=== PATIENT | female | born 1965 | race Caucasian/White ===

== ENCOUNTER 2016-09-16 04:09 | Emergency (ER) | payer SELFPAY ==
[~2016-09-16] VITALS: Ht 157.5 cm; Wt 68.0 kg
[~2016-09-16 04:09] MED LIST: LORA-434 PO
[2016-09-16 04:31] LABS: BASO # 0.1 x10^3/uL (0.0-0.2); BASO % 1 % (0-3); EOS % 3 % (0-3); HEMATOCRIT 38.6 % (36.0-47.0); HEMOGLOBIN 12.5 g/dL (12.0-15.5); LYMPH # 1.7 x10^3/uL (1.0-4.8); LYMPH % 18 % (24-48); MEAN CORPUSCULAR HEMOGLOBIN 28 pg (25-35); MEAN CORPUSCULAR HGB CONC 32 g/dL (31-37); MEAN CORPUSCULAR VOLUME 86 fL (79-100); MONO % 10 % (0-9); NEUT % 67 % (31-73); PLATELET COUNT 268 x10^3/uL (140-400); RED BLOOD COUNT 4.51 x10^6/uL (3.50-5.40); RED CELL DISTRIBUTION WIDTH 16.7 % (11.5-14.5); WHITE BLOOD COUNT 9.2 x10^3/uL (4.0-11.0)
--- NOTE | 2016-09-16 04:31 | PHYS DOC ---
Past Medical History Past Medical History: Anxiety, Asthma Additional Past Medical Histor: uterine fibroid Past Surgical History: No Surgical History Alcohol Use: Occasionally Drug Use: None Adult General Chief Complaint Chief Complaint: VAGINAL BLEEDING HPI HPI Patient is a 50 year old female who presents with vaginal bleeding. Patient reports past days she has been having heavy vaginal bleeding. She is unsure if she is on her menstrual cycle actually is irregular. Last period was approximately 3 weeks ago. She also describes some abdominal cramping. She had been prescribed oral contraceptives in the past to help with heavy vaginal bleeding, but she is taking these regularly. She has not taken anything for pain. No other acute complaints. Review of Systems Review of Systems Constitutional: Denies fever or chills Eyes: Denies change in visual acuity or eye pain HENT: Denies nasal congestion or sore throat Respiratory: Denies cough or shortness of breath Cardiovascular: Denies chest pain GI: Lower abdominal cramping. Denies nausea, vomiting, bloody stools or diarrhea : Heavy vaginal bleeding. Denies dysuria or hematuria Musculoskeletal: Denies back pain or joint pain Integument: Denies rash or skin lesions Neurologic: Denies headache, focal weakness or sensory changes Current Medications Current Medications Current Medications Medications (Trade) Dose Ordered Sig/Mateusz Start Time Stop Time Status Last Admin Dose Admin Lorazepam (Ativan) 1 mg 1X ONCE 09/16/16 04:45 09/16/16 04:55 DC 09/16/16 04:46 1 MG Naproxen (Naprosyn) 500 mg 1X ONCE 09/16/16 05:15 09/16/16 05:28 DC 09/16/16 05:20 500 MG Sodium Chloride (Iv Sodium Chloride 0.9% 1000ml Bag) 1,000 ml @ 1,000 mls/hr 1X ONCE 09/16/16 05:00 09/16/16 05:58 DC 09/16/16 05:22 1,000 MLS/HR Tramadol HCl (Ultram) 50 mg 1X ONCE 09/16/16 04:45 09/16/16 04:55 DC 09/16/16 04:46 50 MG Allergies Allergies Allergies Coded Allergies Type Severity Reaction Last Updated Verified No Known Drug Allergies 02/20/16 No Physical Exam Physical Exam Constitutional: Well developed, well nourished, no acute distress, non-toxic appearance HENT: Normocephalic, atraumatic, bilateral external ears normal Eyes: EOMI, conjunctiva normal, no discharge Neck: Normal range of motion, no stridor Cardiovascular: Heart rate normal, regular rhythm, no murmur Lungs & Thorax: Bilateral breath sounds clear to auscultation Abdomen: Bowel sounds normal, soft, non-distended, mild lower TTP without guarding or rebound Pelvic: Small amount dark red blood in vault. No CMT or adnexal tenderness Skin: Warm, dry, no erythema, no rash Extremities: No obvious deformity, no edema Neurologic: Alert and oriented X 3, no gross deficits noted Current Patient Data Vital Signs Vital Signs Date Time Temp Pulse Resp B/P Pulse Ox O2 Delivery O2 Flow Rate FiO2 09/16/16 05:47 86 18 139/102 97 Room Air 09/16/16 04:28 98.6 98.6 Lab Values Laboratory Tests Test 09/16/16 04:20 White Blood Count 9.2x10^3/uL (4.0-11.0) Red Blood Count 4.51x10^6/uL (3.50-5.40) Hemoglobin 12.5g/dL (12.0-15.5) Hematocrit 38.6% (36.0-47.0) Mean Corpuscular Volume 86fL (79-100) Mean Corpuscular Hemoglobin 28pg (25-35) Mean Corpuscular Hemoglobin Concent 32g/dL (31-37) Red Cell Distribution Width 16.7% (11.5-14.5) H Platelet Count 268x10^3/uL (140-400) Neutrophils (%) (Auto) 67% (31-73) Lymphocytes (%) (Auto) 18% (24-48) L Monocytes (%) (Auto) 10% (0-9) H Eosinophils (%) (Auto) 3% (0-3) Basophils (%) (Auto) 1% (0-3) Neutrophils # (Auto) 6.2x10^3uL (1.8-7.7) Lymphocytes # (Auto) 1.7x10^3/uL (1.0-4.8) Monocytes # (Auto) 1.0x10^3/uL (0.0-1.1) Eosinophils # (Auto) 0.3x10^3/uL (0.0-0.7) Basophils # (Auto) 0.1x10^3/uL (0.0-0.2) Serum Test, Qualitative Negative (NEG) Laboratory Tests 09/16/16 04:20 Microbiology 09/16/16 Wet Prep - Final, Complete Microbiology 09/16/16 Wet Prep - Final, Complete EKG EKG [] Radiology/Procedures Radiology/Procedures [] Course & Med Decision Making Course & Med Decision Making Pertinent Labs and Imaging studies reviewed. (See chart for details) Patient is 50-year-old female who presents with vaginal bleeding. Apparently menorrhagia. Pelvic exam performed. CBC sent to evaluate for anemia. Oral pain meds for patient comfort. Hemoglobin 12.5. Discussed results with patient. Patient discharged home with instructions to follow-up with [facility] [employer] and return precautions. Dragon Disclaimer Dragon Disclaimer This electronic medical record was generated, in whole or in part, using a voice recognition dictation system. Departure Departure Impression: Primary Impression: Menorrhagia Disposition: 01 HOME, SELF-CARE Condition: STABLE Referrals: JANES BARAKAT MD (PCP) Patient Instructions: Menorrhagia Additional Instructions: Thank you for allowing us to provide care today in the Emergency Department. Continue to take the oral contraceptive pills that you have already been prescribed. Schedule a follow up appointment with your ObGyn. Return promptly to the Emergency Department if you develop any new or concerning symptoms. CONNOR ANDREW MD Sep 16, 2016 04:31
[2016-09-16] MEDS ORDERED: TRAMADOL 50 MG TABLET. PO ONE (04:45)
[2016-09-16] MEDS ORDERED: LORAZEPAM 1 MG TABLET. PO ONE (04:45)
[2016-09-16 04:50] LABS: NEG OBC SER NEG; POS OBC SER POS
[2016-09-16] MEDS ORDERED: IV NORMAL SALINE 1000ML BAG 1,000 ML IV ONE (05:00)
[2016-09-16] MEDS ORDERED: NAPROXEN 500 MG TABLET PO ONE (05:15)
[2016-09-16 05:47] VITALS: BP 139/102
== END 2016-09-16 05:55 | disposition home or self-care (01) ==
LOC: ER 04:09
DX: N92.0 Excessive and frequent menstruation with regular cycle (principal); R10.30 Lower abdominal pain, unspecified; J45.909 Unspecified asthma, uncomplicated
CPT/HCPCS: 36415; 84703; 85027; 87491; 87591; 99284; J7030; Q0111